=== PATIENT | male | born 1945 | race Caucasian/White ===

== ENCOUNTER → 2017-02-02 | Outpatient (CLI) | payer MEDICARE, OTHER ==
--- NOTE | 2017-02-03 08:35 | RAD ---
EXAM DESCRIPTION: Shoulder, left 2 or More Views CLINICAL HISTORY: LT SHOULDER PAIN COMPARISON: Remote right shoulder examination TECHNIQUE: 4 views of the left shoulder. FINDINGS: The left shoulder is severely degenerative with [id number] appearance of the glenohumeral articulation and 2 screws passing through the humeral head into the humeral neck with a healed prior proximal humeral fracture at the head neck junction. The AC joint is normally aligned but slightly widened and the chest wall is unremarkable except for diffuse mild peripheral pleural thickening suggesting old inflammatory disease. Aortic atherosclerosis is present in the lung field is otherwise clear. IMPRESSION: 1. 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 Electronically signed by: Gualberto Aranda MD 02/03/2017 8:33 AM CDT
== END | disposition home or self-care (01) ==
LOC: RAD 15:10
PROVIDERS: ATTEND Emergency Medicine
DX: M19.112 Post-traumatic osteoarthritis, left shoulder (principal)

== ENCOUNTER 2018-02-10 21:49 | Emergency (ER) | payer MEDICARE, OTHER ==
[2018-02-10 22:09] VITALS: O2SAT 94
--- NOTE | 2018-02-10 22:46 | RAD ---
EXAM DESCRIPTION: Chest,2 Views CLINICAL HISTORY: cough, fever COMPARISON: 08/15/2010 FINDINGS: Two views of the chest are submitted. There is atelectasis and consolidation at the left lung base. Cardiac silhouette is enlarged. There is consolidation at the medial right lung base. No acute bony abnormality. There is no significant pulmonary vascular engorgement. IMPRESSION: Bilateral consolidations.. Electronically signed by: Collin Will 02/10/2018 10:44 PM CDT
[2018-02-10] MEDS ORDERED: IPRATROPIUM/ALBUTEROL 3 ML VIAL NEB ONE (22:52)
[2018-02-10] MEDS ORDERED: levoFLOXacin 500 MG TAB PO ONE (23:25)
[2018-02-10] MEDS ORDERED: cefTRIAXone SODIUM 1 GM VIAL IM ONE (23:25)
[2018-02-11] MEDS ORDERED: OSELTAMIVIR 75 MG CAP PO ONE
[2018-02-11] MEDS ORDERED: cefTRIAXone SODIUM 1 GM in SODIUM CHL 0.9% 50ML MIN-BAG+ 50 ML IVPB ONE ×2
[2018-02-11] MEDS ORDERED: SODIUM CHLORIDE 0.9% 100ML 0 ML IVPB ONE (00:02)
[2018-02-11] MEDS ORDERED: SODIUM CHLORIDE 0.9% 50ML 50 ML ONE (00:03)
--- NOTE | 2018-02-11 00:03 | ED.PDOC ---
History of Present Illness - General Chief Complaint: Abdominal Pain Stated Complaint: abd pain and cough Time Seen by Provider: 02/10/18 21:50 Source: patient Exam Limitations: no limitations - History of Present Illness Initial Comments: the patient is a 72-year-old male presenting to the emergency room secondary to symptoms of generalized fatigue and achiness along with a runny nose or sore throat and a cough. He is also having some mild abdominal discomfort. No vomiting. Mild nausea. No diarrhea. Within the last year he has had significant congestive heart failure, sepsis and acute renal failure and he is not wanting to go back down the road. He is saturating well. He does not look like he feels good but he is not in any acute distress. Timing/Duration: 24 hours Severity: moderate Improving Factors: nothing Worsening Factors: nothing Associated Symptoms: cough, fever/chills, loss of appetite, malaise Allergies/Adverse Reactions: Allergies IV contrast Allergy (Uncoded 02/10/18 22:10) Home Medications: Ambulatory Orders Azithromycin 500 mg PO DAILY #5 tab 02/11/18 Benzonatate Perles [Tessalon Perles] 100 mg PO Q6HR PRN #30 cap 02/11/18 Oseltamivir Capsule [Tamiflu] 75 mg PO BID 5 Days #10 capsule 02/11/18 levoFLOXacin [Levaquin] 500 mg PO DAILY #5 tab 02/11/18 Review of Systems - Review of Systems Constitutional: States: fever, malaise EENTM: States: nose congestion, throat pain Respiratory: States: cough Cardiology: States: no symptoms reported Gastrointestinal/Abdominal: States: abdominal pain - mild, nausea - mild Genitourinary: States: no symptoms reported Musculoskeletal: States: other - eneralized body aches Skin: States: no symptoms reported Neurological: States: no symptoms reported Endocrine: States: no symptoms reported All other Systems: No Change from Baseline Past Medical History (General) - Patient Medical History Hx Stroke: Yes Hx Congestive Heart Failure: Yes Hx Hypertension: Yes Hx Diabetes: No Surgical History: appendectomy - Vaccination History Immunizations Up to Date: No - Social History Hx Tobacco Use: No Feels Threatened In Home Enviroment: No Feels Threatened In a Relationship: No Hx Physical Abuse: No Hx Emotional Abuse: No Hx Suspected Abuse: No - Female History Patient is a Female of Child Bearing Age (10 -59 yrs old): No - Triage Comment ED Triage Comment: pt is grunting on exertion, and has phlegm rattling when he coughs Physical Exam - Physical Exam General Appearance: Alert, No apparent distress Eye Exam: bilateral normal Ears, Nose, Throat: hearing grossly normal, nasal congestion, pharyngeal erythema Neck: full range of motion, supple Respiratory: no respiratory distress, no accessory muscle use, other - . Cardiovascular/Chest: normal peripheral pulses, no edema, other - regular rate Peripheral Pulses: radial,right: 2+, radial,left: 2+, dorsalis pedis,right: 2+, dorsalis pedis,left: 2+ Gastrointestinal/Abdominal: soft, other - ild periumbilical discomfort palpation. No palpable mass. No rebound or peritoneal signs. 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 Laboratory work does look reassuring at this point. X-ray shows concern for a mild right mid lung and left lower lobe infiltrate. The patient is going to be placed on broad-spectrum antibiotics of Levaquin and azithromycin both for this for now. He was given a dose of Rocephin, azithromycin and Levaquin here tonight. He needs to keep himself well hydrated. He will also be placed on Tamiflu as there are still positive cases going around and symptoms are consistent as well. We cannot test for it here to rule it out. He'll be written for some Tessalon Perles for as needed use. He'll also be written for some low-dose prednisone to help reduce inflammation. I do want him to follow up with his primary care doctor before the weekend. He is not having any difficulty oxygenating at this point. If he has any deterioration whatsoever then he needs to return to the emergency room for further evaluation. I do not see any real evidence pointing towards a recurrence of his abdominal pathology at this time. - Results/Orders Results/Orders: chest x-ray shows mild infiltrate in the right mid lung as well as at the left lung base. There is also some mild atelectasis. Laboratory Results - last 24 hr 02/10/18 02/10/18 02/10/18 22:00 22:00 22:00 WBC RBC Hgb Hct MCV MCH MCHC RDW Plt Count MPV Absolute Neuts (auto) Absolute Lymphs (auto) Absolute Monos (auto) Absolute Eos (auto) Absolute Basos (auto) Neutrophils % Lymphocytes % Monocytes % Eosinophils % Basophils % ESR 15 PT 12.2 INR 1.050 PTT (SP) 22.6 L Sodium 136 Potassium 3.9 Chloride 106 Carbon Dioxide 23 Anion Gap 10.9 L BUN 19 H Creatinine 1.20 BUN/Creatinine Ratio 15.8 Random Glucose 87 Serum Osmolality 273.6 L Lactic Acid Calcium 8.8 Total Bilirubin 0.9 AST 23 ALT 20 Alkaline Phosphatase 63 Creatine Kinase 141 CK-MB (CK-2) 1.7 Troponin I < 0.02 C-Reactive Protein 2.3 H B-Natriuretic Peptide 35.9 Serum Total Protein 7.1 Albumin 3.7 Globulin 3.4 Albumin/Globulin Ratio 1.1 Amylase 52 Group A Strep DNA 02/10/18 02/10/18 02/10/18 22:19 22:27 22:35 WBC 7.7 RBC 4.58 L Hgb 13.9 L Hct 40.4 L MCV 88.1 MCH 30.3 MCHC 34.3 RDW 15.2 H Plt Count 247 MPV 8.0 Absolute Neuts (auto) 5.10 Absolute Lymphs (auto) 1.00 Absolute Monos (auto) 1.20 H Absolute Eos (auto) 0.30 Absolute Basos (auto) 0.10 Neutrophils % 67.0 Lymphocytes % 13.1 L Monocytes % 15.2 H Eosinophils % 4.0 Basophils % 0.7 ESR PT INR PTT (SP) Sodium Potassium Chloride Carbon Dioxide Anion Gap BUN Creatinine BUN/Creatinine Ratio Random Glucose Serum Osmolality Lactic Acid 0.8 Calcium Total Bilirubin AST ALT Alkaline Phosphatase Creatine Kinase CK-MB (CK-2) Troponin I C-Reactive Protein B-Natriuretic Peptide Serum Total Protein Albumin Globulin Albumin/Globulin Ratio Amylase Group A Strep DNA Negative Departure - Departure Clinical Impression: Right middle lobe pneumonia Qualifiers: Pneumonia type: due to unspecified organism Qualified Code(s): J18.1 - Lobar pneumonia, unspecified organism Disposition: Discharge to Home or Self Care Condition: Fair Departure Forms: ED Discharge - Pt. Copy, Patient Portal Self Enrollment Instructions: DI for Pneumonia -- Adult Diet: regular diet Activity: increase activity as tolerated Prescriptions: Benzonatate Perles [Tessalon Perles] 100 mg PO Q6HR PRN #30 cap PRN Reason: Cough Azithromycin 500 mg PO DAILY #5 tab levoFLOXacin [Levaquin] 500 mg PO DAILY #5 tab Oseltamivir Capsule [Tamiflu] 75 mg PO BID 5 Days #10 capsule Home Medications: Ambulatory Orders Azithromycin 500 mg PO DAILY #5 tab 02/11/18 Benzonatate Perles [Tessalon Perles] 100 mg PO Q6HR PRN #30 cap 02/11/18 Oseltamivir Capsule [Tamiflu] 75 mg PO BID 5 Days #10 capsule 02/11/18 levoFLOXacin [Levaquin] 500 mg PO DAILY #5 tab 02/11/18 Additional Instructions: the patient is a 72-year-old male presenting to the emergency room secondary to multiple symptoms. Laboratory work does look reassuring at this point. X-ray shows concern for a mild right mid lung and left lower lobe infiltrate. The patient is going to be placed on broad-spectrum antibiotics of Levaquin and azithromycin both for this for now. He was given a dose of Rocephin, azithromycin and Levaquin here tonight. He needs to keep himself well hydrated. He will also be placed on Tamiflu as there are still positive cases going around and symptoms are consistent as well. We cannot test for it here to rule it out. He'll be written for some Tessalon Perles for as needed use. I do want him to follow up with his primary care doctor before the weekend. He is not having any difficulty oxygenating at this point. If he has any deterioration whatsoever then he needs to return to the emergency room for further evaluation. I do not see any real evidence pointing towards a recurrence of his abdominal pathology at this time.
[2018-02-11] MEDS ORDERED: predniSONE 20 MG TAB PO ONE (00:12)
[2018-02-11] MEDS ORDERED: AZITHROMYCIN 250 MG TAB PO ONE (00:12)
[2018-02-11] MEDS ORDERED: BENZONATATE PERLES 100 MG CAP PO ONE (00:12)
[2018-02-11 01:06] VITALS: BP 105/66; TEMP 99
== END 2018-02-11 00:49 | disposition home or self-care (01) ==
LOC: ER 21:49
DX: J18.1 Lobar pneumonia, unspecified organism (principal); I11.0 Hypertensive heart disease with heart failure; I50.9 Heart failure, unspecified; Z86.73 Personal history of transient ischemic attack (TIA), and cerebral infarction without residual deficits; Z91.041 Radiographic dye allergy status

== ENCOUNTER → 2018-12-09 | Outpatient (CLI) | payer OTHER | LOC: LAB.O 14:06 | PROVIDERS: ATTEND Nuclear Medicine Nuclear Cardiology | DX: I11.0 Hypertensive heart disease with heart failure (principal); I50.9 Heart failure, unspecified; I48.0 Paroxysmal atrial fibrillation ==

== ENCOUNTER → 2019-06-02 | Outpatient (CLI) | payer OTHER ==
--- NOTE | 2019-06-02 17:14 | RAD ---
EXAM DESCRIPTION: Chest,2 Views CLINICAL HISTORY: HEART FAILURE COMPARISON: Previous study February 10, 2018 TECHNIQUE: PA/lateral FINDINGS: Tortuous aorta with calcified aortic arch. Heart size is normal with normal pulmonary vascularity. No pleural effusion or pneumothorax. Discoid atelectasis or linear scarring in the lingula and right lung base. Lungs are otherwise clear with no consolidating infiltrate. Lateral view shows intact sternum and T-spine. Patchy infiltrate over the T-spine on the lateral view above the diaphragm has improved compared to the previous study. This could be improving pneumonia or improving atelectasis. IMPRESSION: Lower lobe partial volume loss or patchy infiltrates, improved compared to previous study. Electronically signed by: Bishop Lopez MD 06/02/2019 5:12 PM CDT
== END ==
LOC: LAB.O 10:02
PROVIDERS: ATTEND Nurse Practitioner Family
DX: I50.9 Heart failure, unspecified (principal); R91.8 Other nonspecific abnormal finding of lung field

== ENCOUNTER → 2019-06-27 | Outpatient (CLI) | payer OTHER | LOC: LAB.O 15:28 | PROVIDERS: ATTEND Student in an Organized Health Care Education/Training Program | DX: N17.9 Acute kidney failure, unspecified (principal); E87.8 Other disorders of electrolyte and fluid balance, not elsewhere classified ==

== ENCOUNTER → 2019-07-11 | Outpatient (CLI) | payer OTHER | LOC: LAB.O 14:03 | PROVIDERS: ATTEND Student in an Organized Health Care Education/Training Program | DX: I12.9 Hypertensive chronic kidney disease with stage 1 through stage 4 chronic kidney disease, or unspecified chronic kidney disease (principal); N18.3 Chronic kidney disease, stage 3 (moderate); E87.8 Other disorders of electrolyte and fluid balance, not elsewhere classified ==

== ENCOUNTER → 2019-08-01 | Outpatient (CLI) | payer OTHER | LOC: LAB.O 09:08 | PROVIDERS: ATTEND Student in an Organized Health Care Education/Training Program | DX: N18.3 Chronic kidney disease, stage 3 (moderate) (principal); I10 Essential (primary) hypertension; E87.8 Other disorders of electrolyte and fluid balance, not elsewhere classified; D63.1 Anemia in chronic kidney disease; E55.9 Vitamin D deficiency, unspecified; N25.81 Secondary hyperparathyroidism of renal origin; N39.0 Urinary tract infection, site not specified ==

== ENCOUNTER → 2019-08-22 | Outpatient (CLI) | payer OTHER | LOC: LAB.O 15:07 | PROVIDERS: ATTEND Student in an Organized Health Care Education/Training Program | DX: N18.3 Chronic kidney disease, stage 3 (moderate) (principal); I10 Essential (primary) hypertension; I50.9 Heart failure, unspecified; E87.8 Other disorders of electrolyte and fluid balance, not elsewhere classified ==

== ENCOUNTER → 2019-08-23 | Outpatient (CLI) | payer OTHER ==
--- NOTE | 2019-08-23 16:20 | US ---
EXAM DESCRIPTION: Venous,Lower Extremity RT: ULTRASOUND. CLINICAL HISTORY: DVT RULE OUT BLOOD CLOT. Previous thrombosis in distal right superficial femoral vein and right popliteal vein. COMPARISON: None Available. TECHNIQUE: Paredes-scale and doppler sonographic evaluation of the deep venous system of the right lower extremity. FINDINGS: Doppler evaluation shows normal color flow and normal phasicity and augmentation of the right common femoral vein, femoral vein, greater saphenous vein, junction with the CFV. Also normal color flow and normal phasicity and augmentation of the posterior tibial vein. The same lower extremity deep veins were completely compressible; normal occlusion with transducer pressure. Paredes-scale survey showed no echogenic thrombus within these veins. The right popliteal vein demonstrated no significant compression with transducer pressure. Color flow proximally with decreased color flow and venous waveforms mid and distal. Right peroneal vein was partially compressible with the transducer. Slightly diminished venous waveforms. IMPRESSION: 1. Partial thrombosis of the right popliteal vein and right peroneal vein with improved flow and less thrombus in the distal peroneal vein.. 2. Normal deep venous flow and compression in the right common femoral vein, right femoral vein, right saphenous vein junction with the right common femoral vein, and right posterior tibial vein. CRITICAL COMMUNICATION: The critical value was discussed directly by phone by Dr. Murphy, with Dr. Jessie Burger, at approximately 1545 hours, on August 23, 2019. Electronically signed by: Collin Murphy MD 08/23/2019 4:19 PM [facility]
== END ==
LOC: US 13:00
PROVIDERS: ATTEND Student in an Organized Health Care Education/Training Program
DX: I82.431 Acute embolism and thrombosis of right popliteal vein (principal); I82.491 Acute embolism and thrombosis of other specified deep vein of right lower extremity; I82.503 Chronic embolism and thrombosis of unspecified deep veins of lower extremity, bilateral; N18.3 Chronic kidney disease, stage 3 (moderate); I50.9 Heart failure, unspecified

== ENCOUNTER → 2019-09-12 | Outpatient (CLI) | payer OTHER | LOC: LAB.O 16:18 | PROVIDERS: ATTEND Student in an Organized Health Care Education/Training Program | DX: N18.3 Chronic kidney disease, stage 3 (moderate) (principal); I10 Essential (primary) hypertension; I50.9 Heart failure, unspecified ==

== ENCOUNTER → 2019-09-21 | Outpatient (CLI) | payer OTHER | LOC: LAB.O 14:21 | PROVIDERS: ATTEND Nurse Practitioner Family | DX: I50.9 Heart failure, unspecified (principal); N18.3 Chronic kidney disease, stage 3 (moderate); E87.8 Other disorders of electrolyte and fluid balance, not elsewhere classified; Z79.01 Long term (current) use of anticoagulants ==

== ENCOUNTER → 2019-11-15 | Outpatient (CLI) | payer OTHER | LOC: LAB.O 16:52 | PROVIDERS: ATTEND Student in an Organized Health Care Education/Training Program | DX: N18.3 Chronic kidney disease, stage 3 (moderate) (principal); E87.8 Other disorders of electrolyte and fluid balance, not elsewhere classified ==

== ENCOUNTER 2020-07-17 21:29 | Emergency (ER) | payer OTHER ==
--- NOTE | 2020-07-17 21:35 | ED.PDOC ---
History of Present Illness - General Time Seen by Provider: 07/17/20 21:31 Source: patient, RN notes reviewed, Vital Signs reviewed, old records Exam Limitations: no limitations - History of Present Illness Initial Comments: 75 yo male with a-fib, ischemic stroke in 2017 with residual right sided weakness, chf comes in with c/c of hand numbness x 3 hours. no trauma. abrupt in onset. on Coumadin. no slurred speech, no headache, no fever or recent illness. checks bp at home occasionally, but not today. no change in vision. no confusion. States he is stress as he is being worked up for nodules in his left upper arm by oncologist. Timing/Duration: 1-3 hours Allergies/Adverse Reactions: Allergies Diphenhydramine [From Benadryl] Adverse Reaction (Verified 07/17/20 21:46) IV contrast Allergy (Uncoded 02/10/18 22:10) Home Medications: Ambulatory Orders Aspirin [Aspirin 81 Low Dose] 81 mg PO 07/17/20 Furosemide 40 mg PO 07/17/20 Metoprolol Tartrate 25 mg 07/17/20 Potassium Chloride [Potassium Chloride ER] 10 meq PO 07/17/20 Warfarin Sodium 5 mg PO 07/17/20 Review of Systems - Review of Systems Constitutional: Denies: chills, fever EENTM: Denies: blurred vision, ear pain Respiratory: Denies: cough, short of breath, wheezing Cardiology: States: edema. Denies: chest pain, palpitations Gastrointestinal/Abdominal: Denies: abdominal pain, nausea, vomiting Genitourinary: Denies: discharge, frequency, hematuria Musculoskeletal: States: other - left arm pain/nodules. Denies: back pain, joint pain, muscle pain Skin: Denies: rash Neurological: States: numbness, pre-existing deficit, tingling. Denies: headache Endocrine: Denies: unexplained weight gain, unexplained weight loss Hematologic/Lymphatic: Denies: blood clots, easy bleeding, easy bruising Past Medical History (General) - Patient Medical History Hx Stroke: Yes Hx Cardiac Disorders: Yes - a-fib Hx Congestive Heart Failure: Yes Hx Hypertension: Yes Hx Diabetes: No Hx Other PMH: Yes - SEDA - Social History Hx Tobacco Use: No Hx Physical Abuse: No Hx Emotional Abuse: No Hx Suspected Abuse: No Family Medical History - Family History Father Family History: Unknown Physical Exam - Physical Exam General Appearance: Alert, Comfortable, No apparent distress, Well Developed, Well Groomed, Well Hydrated, Well Nourished Eye Exam: bilateral normal ENT Exam: normal ENT inspection, hearing grossly normal, TMs normal Neck: non-tender, full range of motion, supple, normal inspection Respiratory: chest non-tender, lungs clear, normal breath sounds, no respiratory distress, no accessory muscle use Cardiovascular/Chest: normal peripheral pulses, regular rate, rhythm, no edema, no gallop, no JVD, no murmur Peripheral Pulses: radial,right: 2+, radial,left: 2+ Gastrointestinal/Abdominal: normal bowel sounds, non tender, soft, no organomegaly, no pulsatile mass Back Exam: normal inspection, no CVA tenderness, no vertebral tenderness Extremities Exam: normal range of motion, no evidence of injury, tenderness - left upper arm nodules and tenderness, other - 3+ edema, hyperpigmentation from chornic venous stasis in LE Mental Status: alert, 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 Skin Exam: normal color, warm/dry Progress - Progress Progress: 07/17/20 22:11 NIH score 2 for complete sensory loss of right hand. GCS 15 07/17/20 22:32 INR 3.25, given 10 mg IV vitamin K, called pharmacist no [facility] or [facility] will give 4 units of FFP. started nicardipine drip with goal systolic bp less than 140. Current BP 112. Will have nicrdipine on stand by. The data reviewed when caring for this patient included: nurse notes, prior records, etc. The history and assessments from nurses notes were reviewed and considered, and the patient's home medication list was also reviewed and considered. My assessment and the results of testing completed here in the ED were discussed with the patient/family. All questions were answered, and they express understanding of my assessment and the plan. Patient was transferred to [place] in stable condition.Jessica Gallardo DO #[id number] - Results/Orders Results/Orders: CT head without contrast: There are bilateral intracranial intraparenchymal hemorrhages in the frontal lobes, left larger than right. Two obvious foci of hemorrhage are present, in the deep and subcortical white matter.These exert a small amount of mass effect on surrounding structures and are surrounded by edema. 07/17/20 21:45 EKG STAT 07/17/20 22:00 ERYTHROCYTE SEDIMENTATION RATE Stat 07/17/20 22:23 URINALYSIS Stat 07/17/20 22:30 niCARdipine HCL [Cardene IV] 25 mg Sodium Chloride 0.9% 250Ml [NS 250ml] 240 ml IVPB PRN 07/17/20 22:34 FFP [FRESH FROZEN PLASMA] Stat Laboratory Results WBC 9.7 K/mm3 (4.8-10.8) 07/17/20 22:00 RBC 4.96 M/mm3 (4.70-6.10) 07/17/20 22:00 Hgb 14.0 gm/dL (14.0-18.0) 07/17/20 22:00 Hct 40.3 % (42.0-52.0) L 07/17/20 22:00 MCV 81.2 fl (80.0-94.0) 07/17/20 22:00 MCH 28.1 pg (27.0-31.0) 07/17/20 22:00 MCHC 34.7 g/dL (33.0-37.0) 07/17/20 22:00 RDW 18.1 % (11.5-14.5) H 07/17/20 22:00 Plt Count 265 K/mm3 (130-400) 07/17/20 22:00 MPV 7.5 fl (7.40-10.4) 07/17/20 22:00 Absolute Neuts (auto) 5.80 K/uL (1.8-6.8) 07/17/20 22:00 Absolute Lymphs (auto) 2.40 K/uL (1.0-3.4) 07/17/20 22:00 Absolute Monos (auto) 1.20 K/uL (0.2-0.8) H 07/17/20 22:00 Absolute Eos (auto) 0.20 K/uL (0.0-0.4) 07/17/20 22:00 Absolute Basos (auto) 0.10 K/uL (0.0-0.1) 07/17/20 22:00 Neutrophils % 59.2 % (42.0-78.0) 07/17/20 22:00 Lymphocytes % 24.9 % (20.0-50.0) 07/17/20 22:00 Monocytes % 12.4 % (2.0-9.0) H 07/17/20 22:00 Eosinophils % 2.3 % (1.0-5.0) 07/17/20 22:00 Basophils % 1.2 % (0.0-2.0) 07/17/20 22:00 PT 32.2 SECONDS (9.0-10.9) H* 07/17/20 22:00 INR 3.25 (0.9-1.15) H 07/17/20 22:00 PTT (SP) 39.7 SECONDS (21.8-31.6) H 07/17/20 22:00 Sodium 137 mmol/L (135-145) 07/17/20 22:00 Potassium 3.5 mmol/L (3.6-5.0) L 07/17/20 22:00 Chloride 99 mmol/L (101-111) L 07/17/20 22:00 Carbon Dioxide 25 mmol/L (21-31) 07/17/20 22:00 Anion Gap 16.5 (12-18) 07/17/20 22:00 BUN 31 mg/dL (7-18) H 07/17/20 22:00 Creatinine 1.05 mg/dL (0.6-1.3) 07/17/20 22:00 BUN/Creatinine Ratio 29.5 (10-20) H 07/17/20 22:00 Random Glucose 103 mg/dL (70-105) 07/17/20 22:00 Serum Osmolality 280.6 mOsm/L (275-295) 07/17/20 22:00 Calcium 9.1 mg/dL (8.4-10.2) 07/17/20 22:00 Total Bilirubin 0.7 mg/dL (0.2-1.0) 07/17/20 22:00 AST 23 IU/L (10-42) 07/17/20 22:00 ALT 24 IU/L (10-60) 07/17/20 22:00 Alkaline Phosphatase 61 IU/L (42-121) 07/17/20 22:00 Troponin I 0.02 ng/mL (0.01-0.05) 07/17/20 22:00 Serum Total Protein 7.3 gm/dL (6.4-8.2) 07/17/20 22:00 Albumin 3.4 g/dl (3.2-5.5) 07/17/20 22:00 Globulin 3.9 gm/dL (2.3-3.5) H 07/17/20 22:00 Albumin/Globulin Ratio 0.9 (1.1-1.9) L 07/17/20 22:00 - EKG/XRAY/CT EKG: Sinus Comments: HR 67, NSR, normal interval, occasional PAC, no acute ischemia. CT: bilateral frontal lobe ICH, pending radiology read. Stroke Information - Onset of Symptoms Symptoms of Stroke: Numbness Stroke Onset of Symptoms Date: 07/17/20 Stroke Onset of Symptoms Time: 18:45 - Contraindications Antithrombotic Contraindication: Medical Care Complication t-PA Contraindication: Drug Tx Not Indicated Departure - Departure Clinical Impression: Coagulopathy ICH (intracerebral hemorrhage) Qualifiers: Intracerebral hemorrhage etiology: nontraumatic Cerebral hemorrhage location: cerebral hemisphere, unspecified portion Laterality: unspecified laterality Qualified Code(s): I61.2 - Nontraumatic intracerebral hemorrhage in hemisphere, unspecified Time of Disposition: 22:41 Disposition: Transfer to Hospital Condition: Fair Home Medications: Ambulatory Orders Aspirin [Aspirin 81 Low Dose] 81 mg PO 07/17/20 Furosemide 40 mg PO 07/17/20 Metoprolol Tartrate 25 mg 07/17/20 Potassium Chloride [Potassium Chloride ER] 10 meq PO 07/17/20 Warfarin Sodium 5 mg PO 07/17/20 Transfer to Outside Facility - Transfer Information Decision to Transfer Date: 07/17/20 Decision to Transfer Time: 21:50 Reason for Transfer: specialized care not available Accepting Facility: [facility]
--- NOTE | 2020-07-17 22:08 | CT ---
EXAM DESCRIPTION: Head CLINICAL HISTORY: stroke COMPARISON: None Available TECHNIQUE: Contiguous axial CT images of the head were obtained. Coronal and sagittal reconstructions were created from the axial data. This exam was performed according to our departmental dose-optimization program, which includes automated exposure control, adjustment of the mA and/or kV according to patient size and/or use of iterative reconstruction technique. FINDINGS: There are bilateral intracranial intraparenchymal hemorrhages in the frontal lobes, left larger than right. Two obvious foci of hemorrhage are present, in the deep and subcortical white matter.These exert a small amount of mass effect on surrounding structures and are surrounded by edema. At the cortex of the right superior lateral frontal lobe is a small focus of hemorrhage as well. Poorly defined decreased attenuation regions in the right subcortical and deep white matter are likely sequela of prior insult on the basis of small vessel disease. No other acute abnormality. There is no additional evidence of acute mass, mass effect, midline shift or hemorrhage. No acute abnormalities of the bones is seen. IMPRESSION: Findings are most consistent with hypertensive hemorrhages. Other etiologies such as hemorrhagic neoplastic lesions or vascular malformations are much less likely as these hemorrhages involve different vascular distributions and are hemorrhaging at the same time. Follow-up is recommended. Electronically signed by: Collin Will 07/17/2020 10:07 PM CDT
[2020-07-17] MEDS ORDERED: niCARdipine HCL 25 MG in SODIUM CHLORIDE 0.9% 250ML 240 ML IVPB SCH (22:30)
[2020-07-17] MEDS ORDERED: PHYTONADIONE INJ 10 MG in SODIUM CHLORIDE 0.9% 50ML 50 ML IVPB ONE (23:11)
[2020-07-17] MEDS ORDERED: PHYTONADIONE INJ 10 MG/ML AMP ONE (23:12)
[2020-07-17] MEDS ORDERED: SODIUM CHLORIDE 0.9% 50ML 50 ML ONE (23:15)
[2020-07-18 00:17] VITALS: BP 123/80; TEMP 98.4; O2SAT 95
== END 2020-07-17 23:45 | disposition short-term general hospital (02) ==
LOC: ER 21:29
DX: I61.2 Nontraumatic intracerebral hemorrhage in hemisphere, unspecified (principal); D68.9 Coagulation defect, unspecified; I48.91 Unspecified atrial fibrillation; I49.1 Atrial premature depolarization; I69.351 Hemiplegia and hemiparesis following cerebral infarction affecting right dominant side; I50.9 Heart failure, unspecified; I11.0 Hypertensive heart disease with heart failure; Z79.899 Other long term (current) drug therapy; Z79.01 Long term (current) use of anticoagulants; Z79.82 Long term (current) use of aspirin; Z88.8 Allergy status to other drugs, medicaments and biological substances; Z91.041 Radiographic dye allergy status
CPT/HCPCS: 36415; 70450; 80053; 84484; 85025; 85610; 85651; 85730; 86900; 86901; 93005; A4216; J3430; J7050; P9017